=== PATIENT | male | born 1970 | race Caucasian/White ===

== ENCOUNTER → 2021-01-22 | Outpatient (CLI) | payer OTHER ==
[~2021-01-22] MED LIST: ALPR-624 PO; AMIT10TA6 PO; GLU850T PO; LISI20TA28 PO; LYR75C PO
== END | disposition home or self-care (01) ==
LOC: RAD 09:19
PROVIDERS: ATTEND Orthopaedic Surgery
DX: M25.722 Osteophyte, left elbow (principal); M77.12 Lateral epicondylitis, left elbow; M77.02 Medial epicondylitis, left elbow
CPT/HCPCS: 73070